=== PATIENT | male | born 1990 | race Caucasian/White ===

== ENCOUNTER 2017-03-29 20:15 | Emergency (ER) | payer OTHER ==
[2017-03-29 20:49] LABS: BASOPHIL % 0.9 % (0-2)
[2017-03-29 20:52] LABS: PLATELET COUNT 408 x10^3mcL (130-400); RED CELL DISTRIBUTION WIDTH 20.3 % (11.5-14.5)
[2017-03-29 20:57] LABS: CALCIUM 8.3 mg/dL (8.5-10.1); CARBON DIOXIDE 28.9 mmol/L (21-32); CHLORIDE SERUM 105 mmol/L (98-107); CREATININE SERUM 0.9 mg/dL (0.7-1.3); GFR1 > 60 mL/min; GLUCOSE SERUM 96 mg/dL (74-106); POTASSIUM SERUM 3.9 mmol/L (3.5-5.1); SODIUM SERUM 140 mmol/L (136-145)
[2017-03-29 21:01] LABS: rbc morphology (normal/abnorm) ABNORMAL (NORMAL)
[2017-03-29 21:02] LABS: ALBUMIN 3.7 g/dL (3.4-5.0); ALKALINE PHOSPHATASE 76 U/L (46-116); ALT/SGPT 43 U/L (16-63); AST/SGOT 19 U/L (15-37); BILIRUBIN TOTAL 0.25 mg/dL (0.20-1.00); TOTAL PROTEIN, SERUM 7.8 g/dL (6.4-8.2)
[2017-03-29 22:28] VITALS: BP 145/82
== END 2017-03-29 22:28 | disposition home or self-care (01) ==
LOC: ED 20:15
PROVIDERS: Emergency Medicine
DX: S20.221A Contusion of right back wall of thorax, initial encounter (principal); K62.5 Hemorrhage of anus and rectum; I10 Essential (primary) hypertension; Z79.899 Other long term (current) drug therapy; X58.XXXA Exposure to other specified factors, initial encounter; Y93.89 Activity, other specified; Y99.8 Other external cause status; Y92.89 Other specified places as the place of occurrence of the external cause

== ENCOUNTER 2019-02-18 10:53 | Emergency (ER) | payer OTHER ==
[~2019-02-18] VITALS: Ht 175.3 cm; Wt 117.0 kg
[2019-02-18 11:01] VITALS: Ht 175.3 cm; Wt 117.0 kg
[2019-02-18 12:25] VITALS: BP 154/110
== END 2019-02-18 13:06 | disposition home or self-care (01) ==
LOC: ED 10:53
DX: J02.9 Acute pharyngitis, unspecified (principal); I10 Essential (primary) hypertension

== ENCOUNTER 2019-05-30 16:04 | Emergency (ER) | payer MEDICAID ==
[~2019-05-30] VITALS: Ht 175.3 cm; Wt 113.9 kg
[2019-05-30 16:11] VITALS: Ht 175.3 cm; Wt 113.9 kg
[2019-05-30 19:45] VITALS: BP 157/97
== END 2019-05-30 19:45 | disposition home or self-care (01) ==
LOC: ED 16:04
DX: H10.12 Acute atopic conjunctivitis, left eye (principal); R07.89 Other chest pain; I10 Essential (primary) hypertension; Z76.0 Encounter for issue of repeat prescription

== ENCOUNTER 2019-09-23 08:44 | Emergency (ER) | payer OTHER ==
[~2019-09-23] VITALS: Ht 175.3 cm; Wt 111.6 kg
[2019-09-23 08:53] VITALS: Ht 175.3 cm; Wt 111.6 kg
[2019-09-23 11:25] VITALS: BP 157/98
== END 2019-09-23 11:25 | disposition home or self-care (01) ==
LOC: ED 08:44
DX: I10 Essential (primary) hypertension (principal); Z76.0 Encounter for issue of repeat prescription

== ENCOUNTER 2019-12-13 09:35 | Emergency (ER) | payer OTHER ==
[~2019-12-13] VITALS: Ht 175.3 cm; Wt 113.4 kg
[2019-12-13 09:53] VITALS: BP 171/79; Ht 175.3 cm; Wt 113.4 kg
== END 2019-12-13 11:30 | disposition home or self-care (01) ==
LOC: ED 09:35
DX: K64.4 Residual hemorrhoidal skin tags (principal); I10 Essential (primary) hypertension

== ENCOUNTER 2020-12-23 17:14 | Emergency (ER) | payer MEDICAID ==
[~2020-12-23] VITALS: Ht 175.3 cm; Wt 101.6 kg
[2020-12-23 17:51] VITALS: Ht 175.3 cm; Wt 101.6 kg
[2020-12-23 21:33] VITALS: BP 148/90
== END 2020-12-23 21:33 | disposition home or self-care (01) ==
LOC: ED 17:14
DX: K62.89 Other specified diseases of anus and rectum (principal)
CPT/HCPCS: 87491; 87591; J1885